=== PATIENT | female | born 1950 | race Caucasian/White ===

== ENCOUNTER → 2017-06-24 | Outpatient (CLI) | payer MEDICARE | END | disposition home or self-care (01) | LOC: LAB.O 08:49 | PROVIDERS: ATTEND Nurse Practitioner Family | DX: E53.8 Deficiency of other specified B group vitamins (principal); E78.2 Mixed hyperlipidemia; I10 Essential (primary) hypertension; R73.03 Prediabetes; E03.9 Hypothyroidism, unspecified ==

== ENCOUNTER → 2017-06-28 | Outpatient (CLI) | payer MEDICARE ==
--- NOTE | 2017-06-28 15:49 | RAD ---
EXAM DESCRIPTION: Knee,Right Complete CLINICAL HISTORY: PAIN IN RIGHT KNEE COMPARISON: None. TECHNIQUE: 4 views right FINDINGS: Mild loss of medial joint space is observed. Small joint effusion is seen. No fracturing is detected. IMPRESSION: Mild degenerative changes are observed most pronounced the medial joint compartment. Electronically signed by: Dong Goodson MD 06/28/2017 3:48 PM CDT
== END | disposition home or self-care (01) ==
LOC: RAD 09:29
PROVIDERS: ATTEND Nurse Practitioner Family
DX: M25.561 Pain in right knee (principal)

== ENCOUNTER → 2017-07-08 | Outpatient (CLI) | payer MEDICARE ==
--- NOTE | 2017-07-10 08:29 | RAD ---
Procedure: XR PELVIS 1-2 VIEWS Exam Date: 07/08/2017 12:00 AM CDT Ordering Provider: ANNE MARIE MONTOYA Clinical Indication: PAIN IN RIGHT HIP Comparison: None FINDINGS: There is no fracture or dislocation. Articular surface of each hip has a normal appearance. The sacroiliac joints have a normal appearance bilaterally. The pubic symphysis is normal. There are no lytic or sclerotic lesions. There are no suspicious calcifications. Impression: 1. Negative exam of the pelvis and each hip. Electronically signed by: Boris Cody MD 07/10/2017 8:28 AM [facility]
== END | disposition home or self-care (01) ==
LOC: RAD 08:37
PROVIDERS: ATTEND Orthopaedic Surgery
DX: M25.551 Pain in right hip (principal)

== ENCOUNTER → 2017-07-13 | Outpatient (CLI) | payer MEDICARE ==
--- NOTE | 2017-07-14 11:45 | MRI ---
EXAM DESCRIPTION: Knee,Right CLINICAL HISTORY: MENISCUS TEAR RIGHT KNEE COMPARISON: None Available. TECHNIQUE: MRI of the right knee is performed according to our usual protocol with multiplanar multi sequence imaging. FINDINGS: Moderate right knee joint effusion. Osteochondral fracture central weightbearing portion medial femoral condyle related to full-thickness vertical tear of the medial meniscus at the posterior central attachment with related medial subluxation of the medial meniscus. Huffman-shaped fracture line involves an area of about 10 mm and there is diffuse hazy reactive marrow edema throughout the medial femoral condyle. Through the region of the fracture there is slight flattening of the surface. There is diffuse grade 2/3 chondrosis throughout the medial compartment. Advanced chronic patellofemoral arthritis with extensive mixed grade 3/4 chondrosis. There is a 15 mm area of grade 4 chondrosis in the lateral aspect of the trochlea. Cruciate and collateral ligaments intact. Lateral meniscus intact. IMPRESSION: 1. Full-thickness tear medial meniscus at the posterior central root with medial subluxation of the meniscus and related osteochondral fracture central weightbearing portion medial femoral condyle 2. Advanced severe patellofemoral arthritis Electronically signed by: Tom Garzon MD 07/14/2017 11:44 AM [facility]
== END ==
LOC: MRI 08:53
PROVIDERS: ATTEND Orthopaedic Surgery
DX: S83.206A Unspecified tear of unspecified meniscus, current injury, right knee, initial encounter (principal)

== ENCOUNTER → 2017-09-19 | Outpatient (CLI) | payer MEDICARE | END | disposition home or self-care (01) | LOC: YCFC.O 14:52 | PROVIDERS: ATTEND Nurse Practitioner Family | DX: R50.9 Fever, unspecified (principal) ==

== ENCOUNTER → 2017-12-01 | Outpatient (CLI) | payer MEDICARE | LOC: RESP 09:30 | PROVIDERS: ATTEND Nurse Practitioner Psychiatric/Mental Health | DX: E66.9 Obesity, unspecified (principal); F31.32 Bipolar disorder, current episode depressed, moderate ==

== ENCOUNTER 2018-01-21 14:38 | Emergency (ER) | payer MEDICARE ==
[2018-01-21 15:05] VITALS: BP 154/76; TEMP 98.8; O2SAT 95
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
== END 2018-01-21 15:30 | disposition home or self-care (01) ==
LOC: ER 14:38
DX: S30.1XXA Contusion of abdominal wall, initial encounter (principal); I10 Essential (primary) hypertension; E07.9 Disorder of thyroid, unspecified; K58.9 Irritable bowel syndrome, unspecified; V49.49XA Driver injured in collision with other motor vehicles in traffic accident, initial encounter; Y92.410 Unspecified street and highway as the place of occurrence of the external cause

== ENCOUNTER → 2018-08-03 | Outpatient (CLI) | payer MEDICARE | LOC: LAB.O 10:05 | PROVIDERS: ATTEND Nurse Practitioner Family | DX: E78.2 Mixed hyperlipidemia (principal); I10 Essential (primary) hypertension; R73.03 Prediabetes; E03.9 Hypothyroidism, unspecified; D51.8 Other vitamin B12 deficiency anemias; E55.9 Vitamin D deficiency, unspecified; D50.9 Iron deficiency anemia, unspecified ==

== ENCOUNTER → 2019-09-26 | Outpatient (CLI) | payer MEDICARE | LOC: YCFC.O 09:56 | PROVIDERS: ATTEND Family Medicine | DX: R30.9 Painful micturition, unspecified (principal); R31.9 Hematuria, unspecified ==